=== PATIENT | female | born 1945 | race Caucasian/White ===

== ENCOUNTER 2023-11-06 12:15 | Outpatient (CLI) | payer OTHER ==
[2023-11-12] MEDS ORDERED: PAXIL20 MG (11:54)
[2023-11-12] MEDS ORDERED: NEURONTIN300 MG PO (11:55)
== END 2023-11-06 12:16 | disposition home or self-care (01) ==
LOC: EKG 12:15
PROVIDERS: ATTEND Surgery
DX: I10 Essential (primary) hypertension (principal)

== ENCOUNTER 2023-11-15 05:16 | Day surgery (SDC) | payer OTHER ==
[~2023-11-15 05:16] MED LIST: NEURONTIN300 MG PO; PAXIL20 MG
[2023-11-15] MEDS ORDERED: CEFAZOLIN SODIUM 1,000 MG VIAL ONE (06:16)
[2023-11-15] MEDS ORDERED: CIPROFLOXACIN IN 5 % DEXTROSE 400 MG/200 ML PIGGYBAG IV ONE ×2 (09:15→09:45)
[2023-11-15] MEDS ORDERED: CEFAZOLIN SODIUM 1,000 MG VIAL IV ONE (09:30)
== END 2023-11-15 12:25 | disposition home or self-care (01) ==
LOC: CIR.AMB 05:16
PROVIDERS: ATTEND Surgery
DX: N63.10 Unspecified lump in the right breast, unspecified quadrant (principal); Z88.6 Allergy status to analgesic agent; Z88.8 Allergy status to other drugs, medicaments and biological substances; Z20.822 Contact with and (suspected) exposure to COVID-19